=== PATIENT | female | born 1990 | race Caucasian/White ===

== ENCOUNTER 2017-07-25 20:44 | Emergency (ER) | payer OTHER ==
[~2017-07-25] VITALS: Ht 157.5 cm; Wt 90.0 kg
[~2017-07-25 20:44] MED LIST: ACET-784 PO; PREN-169 PO; SERT50TA12 PO
[2017-07-25] MEDS ORDERED: IRON PILLS PO (20:54)
[2017-07-25] MEDS ORDERED: [UNRECOGNIZED DRUG - REMARK] PO (20:55)
[2017-07-25 23:04] VITALS: BP 138/81
== END 2017-07-25 23:17 | disposition home or self-care (01) ==
LOC: EMS 20:45
DX: S00.01XA Abrasion of scalp, initial encounter (principal); W20.8XXA Other cause of strike by thrown, projected or falling object, initial encounter; Y93.89 Activity, other specified; Y92.89 Other specified places as the place of occurrence of the external cause; Y99.8 Other external cause status
CPT/HCPCS: 99283

== ENCOUNTER 2019-03-19 21:12 | Emergency (ER) | payer OTHER ==
[~2019-03-19] VITALS: Ht 157.5 cm; Wt 77.0 kg
[~2019-03-19 21:12] MED LIST changes: -ACET-784 PO; +IRON PILLS PO; -PREN-169 PO; -SERT50TA12 PO; +[UNRECOGNIZED DRUG - REMARK] PO
[2019-03-19] MEDS ORDERED: BIRTH CONTROL PO (21:14)
[2019-03-19] MEDS ORDERED: SERT50TA12 PO (21:14)
[2019-03-19] MEDS ORDERED: HYDROCORTISONE 1% 30 GM CREAM TP ONE (22:00)
[2019-03-19 22:20] VITALS: BP 138/78
== END 2019-03-19 22:52 | disposition home or self-care (01) ==
LOC: EMS 21:13
DX: L30.9 Dermatitis, unspecified (principal); F32.9 Major depressive disorder, single episode, unspecified; Z90.89 Acquired absence of other organs

== ENCOUNTER 2020-06-03 22:27 | Inpatient (IN) | payer OTHER ==
[~2020-06-03] VITALS: Ht 157.5 cm; Wt 77.3 kg
[~2020-06-03 22:27] MED LIST changes: +BIRTH CONTROL PO; +SERT-158 PO
[2020-06-03 23:09] LABS: APPEARANCE,URINE CLOUDY (CLEAR); BILIRUBIN,URINE NEGATIVE (NEGATIVE); GLUCOSE, URINE (UA) NEGATIVE (NEGATIVE); KETONES,URINE NEGATIVE (NEGATIVE); LEUKOCYTE ESTERASE ,URINE NEGATIVE (NEGATIVE); NITRATE,URINE NEGATIVE (NEGATIVE); OCCULT BLOOD,URINE MODERATE (NEGATIVE); PROTEIN,URINE NEGATIVE (NEGATIVE); UROBILINOGEN,URINE 0.2 mg/dL (<=1.0)
[2020-06-03 23:15] LABS: BACTERIA,URINE Few /HPF (None Seen); SQUAMOUS EPITHELIAL CELL,UR Moderate /LPF (None Seen)
[2020-06-03] MEDS ORDERED: MORPHINE SULFATE 4 MG/ML SYRINGE IVP ONE (23:15)
[2020-06-03 23:18] LABS: BASOPHILS % (AUTO) 0.2 % (0.0-2.0); EOSINOPHILS % (AUTO) 0.7 % (1.0-6.0); HEMATOCRIT 33.2 % (36-46); HEMOGLOBIN 11.2 g/dL (12.0-16.0); LYMPHOCYTES # (AUTO) 2.2 K/uL (1.0-4.8); LYMPHOCYTES % (AUTO) 22.9 % (22.0-44.0); MEAN CORPUSCULAR HEMOGLOBIN 28.5 pg (26.0-34.0); MEAN CORPUSCULAR HGB CONC 33.8 G/dL (31.0-37.0); MEAN CORPUSCULAR VOLUME 85 fL (80-100); MONOCYTES # (AUTO) 0.5 K/uL (0.1-1.0); MONOCYTES % (AUTO) 5.6 % (2.0-9.0); NEUTROPHILS # (AUTO) 6.9 K/uL (1.8-7.7); NEUTROPHILS % (AUTO) 70.6 % (40.0-70.0); PLATELET COUNT (AUTO) 372 K/uL (150-450); RED BLOOD CELL COUNT(AUTO) 3.93 MIL/uL (4.00-5.20); RED CELL DISTRIBUTION WIDTH 14.1 % (11.5-14.5)
[2020-06-03 23:45] LABS: ANION GAP 12 mmol/L (8-16); CARBON DIOXIDE 23 mmol/L (22-29); CHLORIDE 102 mmol/L (98-107); CREATININE 0.52 mg/dL (0.60-1.30); GLOMERULAR FILTR. RATE CALC > 60 mL/min (>60); GLUCOSE,RANDOM 97 mg/dL (70-110); SODIUM SERUM 137 mmol/L (136-145); UREA NITROGEN, BLOOD 4 mg/dL (7-18)
[2020-06-03] MEDS ORDERED: OXYTOCIN 30 UNITS/LACT RINGERS 500 ML IV PRN (23:45)
[2020-06-04 00:11] LABS: ALANINE AMINOTRANSFERASE 30 U/L (12-78); ALBUMIN 2.9 g/dL (3.4-5.0); ALKALINE PHOSPHATASE 132 U/L (46-116); ASPARTATE AMINOTRANSFERASE 21 U/L (15-37); BILIRUBIN,TOTAL 0.3 mg/dL (0.1-1.0); HCG,QUANTITATIVE 6454 mIU/mL (0-6); LIPASE 194 U/L (73-393); TOTAL PROTEIN, SERUM 7.4 g/dL (6.4-8.2)
[2020-06-04] MEDS ORDERED: ACETAMINOPHEN 325 MG TABLET PO PRN (01:30)
[2020-06-04] MEDS ORDERED: ONDANSETRON HCL 4 MG/2 ML VIAL IVP PRN (01:30)
[2020-06-04] MEDS ORDERED: 0.9% SODIUM CHLORIDE 10 ML SYRINGE IVP PRN (01:30)
[2020-06-04] MEDS ORDERED: MISOPROSTOL 100 MCG TABLET PO ONE ×3 (04:00→10:00)
[2020-06-04 07:55] LABS: HEMATOCRIT 31.7 % (36-46); HEMOGLOBIN 10.7 g/dL (12.0-16.0)
[2020-06-04 10:28] LABS: COVID AG,FIA SOURCE NASOPHARYNGEAL
[2020-06-04 10:31] VITALS: BP 102/66
== END 2020-06-04 15:35 | disposition home or self-care (01) | DRG 561 ==
LOC: EMS 22:27 → 6N 06-04 08:27
PROVIDERS: ADMIT Obstetrics & Gynecology; ATTEND Obstetrics & Gynecology
PROC: 3E0D7GC Introduction of Other Therapeutic Substance into Mouth and Pharynx, Via Natural or Artificial Opening (ICD-10-PCS; principal; 2020-06-04)
DX: O73.0 Retained placenta without hemorrhage (principal); Z20.822 Contact with and (suspected) exposure to COVID-19; Z90.49 Acquired absence of other specified parts of digestive tract; Z87.19 Personal history of other diseases of the digestive system
CPT/HCPCS: 85014; 85018; 86850; 86900; 86901; 87426; 88305; 99285; J2270

== ENCOUNTER 2020-11-13 15:34 | Emergency (ER) | payer OTHER ==
[~2020-11-13] VITALS: Ht 162.6 cm; Wt 77.3 kg
[2020-11-13] MEDS ORDERED: CHOL400T56 PO (16:48)
[2020-11-13 17:29] LABS: BASOPHILS % (AUTO) 0.4 % (0.0-2.0); EOSINOPHILS % (AUTO) 0 % (1.0-6.0); HEMATOCRIT 37.7 % (36-46); HEMOGLOBIN 12.6 g/dL (12.0-16.0); LYMPHOCYTES # (AUTO) 1.4 K/uL (1.0-4.8); MEAN CORPUSCULAR HEMOGLOBIN 28.8 pg (26.0-34.0); MEAN CORPUSCULAR HGB CONC 33.3 G/dL (31.0-37.0); MEAN CORPUSCULAR VOLUME 87 fL (80-100); MONOCYTES # (AUTO) 0.4 K/uL (0.1-1.0); NEUTROPHILS # (AUTO) 7.1 K/uL (1.8-7.7); NEUTROPHILS % (AUTO) 78.6 % (40.0-70.0); PLATELET COUNT (AUTO) 354 K/uL (150-450); RED BLOOD CELL COUNT(AUTO) 4.36 MIL/uL (4.00-5.20); RED CELL DISTRIBUTION WIDTH 14.7 % (11.5-14.5)
[2020-11-13 18:51] LABS: ANION GAP 13 mmol/L (8-16); CALCIUM, TOTAL 8.8 mg/dL (8.8-10.5); CARBON DIOXIDE 24 mmol/L (22-29); CHLORIDE 103 mmol/L (98-107); CREATININE 0.61 mg/dL (0.60-1.30); GLOMERULAR FILTR. RATE CALC > 60 mL/min (>60); GLUCOSE,RANDOM 91 mg/dL (70-110); POTASSIUM 3.9 mmol/L (3.5-5.1); SODIUM SERUM 140 mmol/L (136-145); UREA NITROGEN, BLOOD 15 mg/dL (7-18)
[2020-11-13 19:02] LABS: ALANINE AMINOTRANSFERASE 35 U/L (12-78); ALBUMIN 3.6 g/dL (3.4-5.0); ALKALINE PHOSPHATASE 119 U/L (46-116); ASPARTATE AMINOTRANSFERASE 19 U/L (15-37); BILIRUBIN,TOTAL 0.6 mg/dL (0.1-1.0); HCG,QUANTITATIVE < 1 mIU/mL (0-6); TOTAL PROTEIN, SERUM 7.7 g/dL (6.4-8.2)
[2020-11-13 19:20] VITALS: BP 108/54
[2020-11-13 19:50] LABS: APPEARANCE,URINE CLEAR (CLEAR); BILIRUBIN,URINE NEGATIVE (NEGATIVE); GLUCOSE, URINE (UA) NEGATIVE (NEGATIVE); KETONES,URINE TRACE mg/dL (NEGATIVE); LEUKOCYTE ESTERASE ,URINE NEGATIVE (NEGATIVE); NITRATE,URINE NEGATIVE (NEGATIVE); OCCULT BLOOD,URINE LARGE (NEGATIVE); PH,URINE 6.5 (5.0-8.0); PROTEIN,URINE TRACE (NEGATIVE); UROBILINOGEN,URINE 0.2 mg/dL (<=1.0)
[2020-11-13 20:26] LABS: BACTERIA,URINE None Seen /HPF (None Seen); WBC,URINE 0-2 /HPF (0-5)
[2020-11-13 20:27] LABS: SQUAMOUS EPITHELIAL CELL,UR Rare /LPF (None Seen)
== END 2020-11-13 20:29 | disposition home or self-care (01) ==
LOC: EMS 15:39
DX: N92.0 Excessive and frequent menstruation with regular cycle (principal)
CPT/HCPCS: 80053; 81001; 84702; 85025; 86901; 99283

== ENCOUNTER 2021-01-08 19:06 | Emergency (ER) | payer OTHER ==
[~2021-01-08] VITALS: Ht 157.5 cm; Wt 77.3 kg
[~2021-01-08 19:06] MED LIST changes: -BIRTH CONTROL PO; +CHOL400T56 PO; -IRON PILLS PO; -SERT-158 PO; -[UNRECOGNIZED DRUG - REMARK] PO
[2021-01-08 19:16] VITALS: BP 135/57
[2021-01-08] MEDS ORDERED: IBUPROFEN 600 MG TABLET PO ONE (19:30)
== END 2021-01-08 20:26 | disposition home or self-care (01) ==
LOC: EMS 19:08
DX: S56.811A Strain of other muscles, fascia and tendons at forearm level, right arm, initial encounter (principal); F32.9 Major depressive disorder, single episode, unspecified; X50.0XXA Overexertion from strenuous movement or load, initial encounter; Y93.89 Activity, other specified; Y92.89 Other specified places as the place of occurrence of the external cause; Y99.0 Civilian activity done for income or pay
CPT/HCPCS: 99282; Z7502; Z7610

== ENCOUNTER 2021-08-13 23:15 | Emergency (ER) | payer OTHER ==
[~2021-08-13] VITALS: Ht 157.5 cm; Wt 76.8 kg
[2021-08-14 01:00] LABS: BASOPHILS % (AUTO) 0.4 % (0.0-2.0); EOSINOPHILS % (AUTO) 0 % (1.0-6.0); HEMATOCRIT 36.1 % (36-46); HEMOGLOBIN 12.2 g/dL (12.0-16.0); LYMPHOCYTES # (AUTO) 2.3 K/uL (1.0-4.8); LYMPHOCYTES % (AUTO) 31.5 % (22.0-44.0); MEAN CORPUSCULAR HEMOGLOBIN 29.7 pg (26.0-34.0); MEAN CORPUSCULAR HGB CONC 33.8 G/dL (31.0-37.0); MEAN CORPUSCULAR VOLUME 88 fL (80-100); MONOCYTES # (AUTO) 0.4 K/uL (0.1-1.0); MONOCYTES % (AUTO) 5.6 % (2.0-9.0); NEUTROPHILS # (AUTO) 4.6 K/uL (1.8-7.7); NEUTROPHILS % (AUTO) 62.5 % (40.0-70.0); PLATELET COUNT (AUTO) 345 K/uL (150-450); RED CELL DISTRIBUTION WIDTH 13.6 % (11.5-14.5)
[2021-08-14 01:11] LABS: ANION GAP 6 mmol/L (8-16); CALCIUM, TOTAL 8.7 mg/dL (8.8-10.5); CARBON DIOXIDE 28 mmol/L (22-29); CHLORIDE 101 mmol/L (98-107); CREATININE 0.69 mg/dL (0.60-1.30); GLOMERULAR FILTR. RATE CALC > 60 mL/min (>60); GLUCOSE,RANDOM 89 mg/dL (70-110); POTASSIUM 3.6 mmol/L (3.5-5.1); SODIUM SERUM 135 mmol/L (136-145); UREA NITROGEN, BLOOD 16 mg/dL (7-18)
[2021-08-14 01:22] LABS: HCG,QUANTITATIVE < 1 mIU/mL (0-6)
[2021-08-14] MEDS ORDERED: RINGERS SOLUTION,LACTATED 1,000 ML IV ONE (01:45)
[2021-08-14] MEDS ORDERED: LORazepam 1 MG TABLET PO ONE (02:45)
[2021-08-14 08:55] VITALS: BP 136/68
== END 2021-08-14 09:14 | disposition home or self-care (01) ==
LOC: EMS 23:17
DX: R07.9 Chest pain, unspecified (principal); R20.2 Paresthesia of skin; M54.2 Cervicalgia; F32.A Depression, unspecified; K80.80 Other cholelithiasis without obstruction; F41.9 Anxiety disorder, unspecified; R42 Dizziness and giddiness; Z90.49 Acquired absence of other specified parts of digestive tract; Z98.890 Other specified postprocedural states
CPT/HCPCS: 36415; 70450; 71045; 80048; 84484; 84702; 85025; 85379; 93005; 96360; 99285; J7120